=== PATIENT | male | born 1950 | race Caucasian/White ===

== ENCOUNTER 2018-10-22 01:36 | Inpatient (IN) | payer OTHER, SELFPAY ==
[2018-10-22] VITALS (37 sets, daily range): BP systolic 91–144; BP diastolic 53–113; PULSE 71–152; RESP 11–20; TEMP 36.2–36.8; O2SAT 93–97; BMI 33.0
--- NOTE | 2018-10-22 01:48 | ED.GENADULT ---
HPI - General Adult General Chief complaint: Arrhythmia/Palpitations Stated complaint: thinks he is in AFib Time Seen by Provider: 10/22/18 01:48 Source: patient Mode of arrival: ambulatory Limitations: no limitations History of Present Illness HPI narrative: Patient is a 67-year-old male here for evaluation of what he thinks is atrial fibrillation. Patient states that he has had a heart valve replaced in the past. He thinks that it is the mitral valve. He states that after that surgery he had several episodes of atrial fibrillation but then went appeared time without any problems. He states that his last episode of atrial fibrillation was approximately 1 year ago. He stated he was cardioverted at that time. States that last night he went to bed it is normal state health. Was woken up several hours prior to arrival here in the emergency department with a chest discomfort and also feel like his heart was racing. No shortness of breath. No lightheadedness. Not currently on anticoagulation. He states he has been taking his other medications. Related Data Home Medications Medication Instructions Recorded Confirmed amlodipine 5 mg PO DAILY 10/22/18 10/22/18 hydrocortisone 10 mg PO TID 10/22/18 10/22/18 leflunomide 20 mg PO DAILY 10/22/18 10/22/18 levothyroxine 50 mcg PO DAILY 10/22/18 10/22/18 metoprolol succinate 50 mg PO DAILY 10/22/18 10/22/18 ramipril 10 mg PO DAILY 10/22/18 10/22/18 Allergies Allergy/AdvReac Type Severity Reaction Status Date / Time pseudoephedrine AdvReac Palpitation Verified 10/22/18 02:15 [From [facility]] s Review of Systems Constitutional Denies fever(s) and Denies headache(s) ENT Ears, Nose, Mouth, and Throat: Denies vertigo, Denies dizziness and Denies headache(s) Cardiovascular Reports chest pain, Reports rapid heart rate, Denies lightheadedness, Reports palpitations and Denies dyspnea Respiratory Denies dyspnea Gastrointestinal Gastrointestinal: Denies abdominal pain, Denies nausea and Denies vomiting Musculoskeletal Denies myalgias and Denies arthralgias Integumentary/Breasts Denies rash Neurologic Denies behavioral changes, Denies vertigo, Denies dizziness and Denies headache(s) Psychiatric Denies behavioral changes Endocrine Reports palpitations Hematologic/Lymphatic Denies easy bleeding and Denies easy bruising Allergic/Immunologic Denies urticaria [facility] Medical History Acromegalia (Acute) Addisons disease (Acute) History of fractured pelvis (Acute) History of prostate cancer (Acute) Hypertension (Acute) Melanoma (Acute) Obstructive sleep apnea on CPAP (Acute) Pituitary adenoma (Acute) Surgical History H/O mitral valve replacement (Acute) History of bilateral inguinal hernia repair (Acute) History of pituitary surgery (Acute) History of shoulder surgery (Acute) History of transurethral resection of prostate (Acute) History of umbilical hernia repair (Acute) Social History household members: spouse and family Smoking Status: Former smoker Social History household members: spouse and family Smoking Status: Former smoker Exam Initial Vital Signs Initial Vital Signs: Vital Signs Pulse Rate 151 H 10/22/18 01:38 Respiratory Rate 16 10/22/18 01:38 Blood Pressure 131/113 H 10/22/18 01:38 Pulse Oximetry 95 10/22/18 01:38 Const General: cooperative, comfortable, well developed, well groomed and No acute distress Orientation: alert, awake and oriented x3 HENMT Head: normal to inspection and normocephalic Resp Effort & Inspection: normal respiratory effort Auscultation: clear to auscultation bilaterally Cardio Rate: tachycardic Rhythm: abnormal rhythm irregularly irregular Pulses: radial pulses present GI Inspection: non-distended Palpation: soft, No firm and No tender Skin Lesions: no lesions Rashes: no rashes Neuro General: alert and awake Cognition: normal cognition Speech: speech normal Gait: normal gait Motor: muscle tone normal throughout Extrem General: normal to inspection and capillary refill normal Psych Appearance: grossly normal and well kempt Procedures Cardioversion Consent Signed: Yes Indication: Atrial fibrillation Cardiac rhythm prior to cardioversion: Atrial fibrillation Stability: Stable Number of attempts (shocks): 2 Joules used: 150 and 200 Cardiac rhythm post-cardioversion: Atrial fibrillation Additional Comments: On successful cardioversion Procedural Sedation Patient Age: Patient is 5yrs or older Consent signed: Yes Time out performed: Yes Indication: cardioversion Presedation Evaluation: CRYSTAL singleton ASA Class: II Mallampati Airway Classification: Class II Preparation: cardiac technologist applied, pulse oximeter, capnometry used and supplemental O2 applied Fentanyl: IV Fentanyl dose (mcg): 10 Midazolam: IV Midazolam dose (mg): 3 ED Sedation Level: Moderate (Concious) Patient Tolerated Procedure: Well and No complications Complications: none Course Orders Ordered: ED Orders 10/22/18 EKG-12 Lead Stat 10/22/18 01:50 EKG-12 Lead Stat 10/22/18 01:51 Basic Metabolic Panel Stat Complete Blood Count AUTO DIFF Stat Free T4 Free Thyroxine Routine Magnesium Stat Partial Thromboplastin Time Stat Prothrombin Time INR Stat Thyroid Stimulating Hormone Urgent Troponin I Stat 10/22/18 03:19 XR chest 1V Stat 10/22/18 03:53 EC echo doppler complete Urgent 10/22/18 03:58 Consult to Dietitian, Adult Routine 10/22/18 03:59 Consult to Discharge Planning Routine Consult to Respiratory Therapy Evaluate & Treat 10/22/18 04:00 MRSA PCR Stat 10/22/18 04:36 BiPAP Ventilatory Support RT PROTOCOL 10/22/18 04:37 Consult to Respiratory Therapy Evaluate & Treat Acetaminophen (Tylenol) 650 mg PO Q6HR PRN PRN Reason: As Needed for Fever/Mild Pain Enoxaparin Sodium (Lovenox) 120 mg SUBCUT BID IVY Hydrocortisone (Cortef) 10 mg PO TID IVY Diltiazem HCl 125 mg/ Dextrose 125 mls @ 5 mls/hr IV TITRATE IVY; Protocol Sodium Chloride (Normal Saline 0.9%) 1,000 mls @ 100 mls/hr IV CONT IVY Leflunomide (Arava) 20 mg PO DAILY IVY Levothyroxine Sodium (Synthroid) 50 mcg PO DAILY@0700 IVY Metoprolol Succinate (Toprol Xl) 50 mg PO DAILY IVY Morphine Sulfate (Morphine) 2 mg IV Q4HR PRN PRN Reason: Pain, Moderate (4-6) Naloxone HCl (Narcan) 0.2 mg IV Q2MIN PRN PRN Reason: Opiate Reversal Discontinued Medications Diltiazem HCl (Cardizem) 10 mg IV NOW ONE Stop: 10/22/18 02:34 Last Admin: 10/22/18 03:44 Dose: Not Given Enoxaparin Sodium (Lovenox) 115 mg 1 mg/kg (115 mg) SUBCUT BID [facility] Fentanyl (Sublimaze) 100 mcg IV NOW ONE Stop: 10/22/18 02:33 Last Admin: 10/22/18 02:24 Dose: 100 mcg Sodium Chloride (Normal Saline 0.9%) 1,000 mls @ 1,000 mls/hr IV BOLUS ONE Stop: 10/22/18 02:48 Last Infusion: 10/22/18 03:59 Dose: 0 mls/hr Admin: 10/22/18 02:27 Dose: 1,000 mls/hr DILTIAZEM (Diltiazem 125 Mg/125 Ml-D5w) 125 mg in 125 mls @ 5 mls/hr IV TITRATE IVY; Protocol Last Titration: 10/22/18 03:59 Dose: 10 mg/hr, 10 mls/hr Titration: 10/22/18 03:29 Dose: 10 mg/hr, 10 mls/hr Admin: 10/22/18 03:11 Dose: 5 mg/hr, 5 mls/hr Sodium Chloride (Normal Saline 0.9%) 500 mls @ 1,000 mls/hr IV BOLUS ONE Stop: 10/22/18 03:59 Last Infusion: 10/22/18 04:01 Dose: 1,000 mls/hr Admin: 10/22/18 03:31 Dose: 1,000 mls/hr Midazolam HCl (Versed) 3 mg IV NOW ONE Stop: 10/22/18 02:33 Last Admin: 10/22/18 02:22 Dose: 3 mg Vital Signs - 8 hr 10/22/18 01:38 10/22/18 02:06 10/22/18 02:10 Temperature Pulse Rate 151 H 141 H 141 H Respiratory Rate 16 19 20 Blood Pressure 131/113 H Blood Pressure [Left Arm] 136/92 H 118/88 Pulse Oximetry 95 95 95 10/22/18 02:15 10/22/18 02:20 10/22/18 02:25 Temperature Pulse Rate 146 H 146 H 139 H Respiratory Rate 18 14 11 L Blood Pressure Blood Pressure [Left Arm] 124/89 123/103 H 100/78 Pulse Oximetry 96 97 95 10/22/18 02:30 10/22/18 02:35 10/22/18 02:40 Temperature Pulse Rate 141 H 142 H 145 H Respiratory Rate 13 12 17 Blood Pressure Blood Pressure [Left Arm] 100/74 119/84 116/77 Pulse Oximetry 96 96 97 10/22/18 02:45 10/22/18 02:50 10/22/18 02:55 Temperature Pulse Rate 141 H 142 H 143 H Respiratory Rate 17 16 14 Blood Pressure Blood Pressure [Left Arm] 118/70 109/80 99/76 Pulse Oximetry 96 96 96 10/22/18 03:00 10/22/18 03:05 10/22/18 03:10 Temperature Pulse Rate 142 H 144 H 143 H Respiratory Rate 12 13 14 Blood Pressure Blood Pressure [Left Arm] 112/87 98/75 104/91 H Pulse Oximetry 96 96 95 10/22/18 03:15 10/22/18 03:20 10/22/18 03:30 Temperature Pulse Rate 152 H 132 H 149 H Respiratory Rate 14 12 15 Blood Pressure Blood Pressure [Left Arm] 96/79 91/76 111/80 Pulse Oximetry 95 94 95 10/22/18 03:35 10/22/18 03:40 10/22/18 04:29 Temperature 98.2 F Pulse Rate 126 H 136 H 130 H Respiratory Rate 20 13 12 Blood Pressure 130/53 L Blood Pressure [Left Arm] 103/72 116/67 Pulse Oximetry 96 96 93 Medical Decision Making Lab Data Lab results reviewed: Yes I reviewed the patient's lab results. Result diagrams: 10/22/18 01:51 10/22/18 01:51 Lab Results 10/22/18 10/22/18 10/22/18 Range/Units 01:51 01:51 01:51 WBC 5.6 (4.5-11.0) X10^3/uL RBC 4.99 (4.5-5.9) X10^6/uL Hgb 16.2 (13.5-17.5) g/dL Hct 47.7 (41-53) % MCV 95.6 (80-100) fL MCH 32.4 (26-34) PG MCHC 33.9 (30-36) % RDW 14.3 (11.6-14.8) % Plt Count 215 (150-400) X10^3/uL Neut % (Auto) 61.2 (50-75) % Lymph % (Auto) 29.2 (25-40) % [place] % (Auto) 6.0 (3-14) % Eos % (Auto) 2.6 (2-4) % Baso % (Auto) 1.0 (0-2) % Neut # (Auto) 3500 (3843-4738) /uL Lymph # (Auto) 1700 (4123-0513) /uL [place] # (Auto) 300 (0-900) /uL Eos # (Auto) 100 (0-450) /uL Baso # (Auto) 100 (0-100) /uL PT 11.1 (10.1-12.7) SECONDS INR 1.0 (0.9-1.3) APTT 29 (26.4-36.2) SECONDS Sodium 140 (137-145) mmol/L Potassium 3.9 (3.4-5.1) mmol/L Chloride 103 (98-107) mmol/L Carbon Dioxide 28 (22-32) mmol/L BUN 17 (9-20) mg/dL Creatinine 0.70 (0.66-1.25) mg/dL Estimated GFR > 60.0 (>60) mL/min BUN/Creatinine Ratio 24.3 H (6-22) Glucose 140 H (80-110) mg/dL Calcium 9.6 (8.4-10.2) mg/dL Magnesium (1.6-2.3) mg/dL Troponin I 0.017 (0.01-0.034) ng/mL TSH (0.47-4.68) uIU/mL 10/22/18 10/22/18 Range/Units 01:51 01:51 WBC (4.5-11.0) X10^3/uL RBC (4.5-5.9) X10^6/uL Hgb (13.5-17.5) g/dL Hct (41-53) % MCV (80-100) fL MCH (26-34) PG MCHC (30-36) % RDW (11.6-14.8) % Plt Count (150-400) X10^3/uL Neut % (Auto) (50-75) % Lymph % (Auto) (25-40) % [place] % (Auto) (3-14) % Eos % (Auto) (2-4) % Baso % (Auto) (0-2) % Neut # (Auto) (7162-2925) /uL Lymph # (Auto) (0030-9037) /uL [place] # (Auto) (0-900) /uL Eos # (Auto) (0-450) /uL Baso # (Auto) (0-100) /uL PT (10.1-12.7) SECONDS INR (0.9-1.3) APTT (26.4-36.2) SECONDS Sodium (137-145) mmol/L Potassium (3.4-5.1) mmol/L Chloride (98-107) mmol/L Carbon Dioxide (22-32) mmol/L BUN (9-20) mg/dL Creatinine (0.66-1.25) mg/dL Estimated GFR (>60) mL/min BUN/Creatinine Ratio (6-22) Glucose (80-110) mg/dL Calcium (8.4-10.2) mg/dL Magnesium 2.1 (1.6-2.3) mg/dL Troponin I (0.01-0.034) ng/mL TSH 0.99 (0.47-4.68) uIU/mL ECG Data Attestation: I personally reviewed and interpreted this ECG as follows: Prior ECG tracings: not available for review Interpretation: EKG upon arrival Atrial fibrillation Ventricular rate of 149 Normal axis Normal QRS Normal QTC ST depressions lateral EKG after cardioversion attempt Atrial fibrillation Ventricular rate of 144 Unchanged from prior EKG MDM Narrative Medical decision making narrative: Patient with symptoms less than 48 hours. Discussed with him his options to include rate control versus rhythm control with cardioversion. Patient opted for rhythm control. After to unsuccessful Tums of cardioversion he was started on a Cardizem drip. He tolerated the sedation well. The chest x-ray was ordered per request of the admitting provider. He will follow up on the results. Will admit the patient for further evaluation and treatment. Critical Care Time Critical Care Time: Yes Total Critical Care Time: 30 Attestation: The high probability of a clinically significant, sudden or life threatening deterioration of the cardiovascular system(s) required my full and direct attention, intervention and personal management. The aggregate critical care time was 30 minutes. This time is in addition to time spent performing reported procedures but includes the following: [] Data Review and interpretation [] Patient assessment and monitoring of vital signs [] Documentation [] Medication orders and management Discharge Plan Departure Patient Disposition: Admitted As Inpatient Clinical Impression: Atrial fibrillation Qualifiers: Atrial fibrillation type: paroxysmal Qualified Code(s): I48.0 - Paroxysmal atrial fibrillation Discharge Date/Time: 10/22/18 03:55 Interventions: ED Discharge Assessment Last Done: 10/22/18 03:50 Admit Date/Time: 10/22/18 03:33 Admit Provider: Anant Smith
[2018-10-22 02:04] LABS: Add Manual Diff / Slide Review NO; Basophils Absolute Auto 100 /uL (0-100); Eosinophils Absolute Auto 100 /uL (0-450); Eosinophils Percent Auto 2.6 % (2-4); Hematocrit 47.7 % (41-53); Hemoglobin 16.2 g/dL (13.5-17.5); Lymphocytes Absolute Auto 1700 /uL (1100-4500); Lymphocytes Percent Auto 29.2 % (25-40); Mean Corpuscular HGB Conc 33.9 % (30-36); Mean Corpuscular Hemoglobin 32.4 PG (26-34); Mean Corpuscular Volume 95.6 fL (80-100); Monocytes Absolute Auto 300 /uL (0-900); Neutrophils Absolute Auto 3500 /uL (1500-7000); Neutrophils Percent Auto 61.2 % (50-75); Platelet Count 215 X10^3/uL (150-400); Red Blood Cell Count 4.99 X10^6/uL (4.5-5.9); Red Cell Distribution Width 14.3 % (11.6-14.8); White Blood Cell Count 5.6 X10^3/uL (4.5-11.0)
[2018-10-22 02:05] LABS: Prothrombin Time 11.1 SECONDS (10.1-12.7)
[2018-10-22 02:08] LABS: PTT Partial Thromboplastin Tim 29 SECONDS (26.4-36.2)
[2018-10-22 02:09] LABS: BUN Creatinine Ratio 24.3 (6-22); Blood Urea Nitrogen 17 mg/dL (9-20); Calcium 9.6 mg/dL (8.4-10.2); Carbon Dioxide 28 mmol/L (22-32); Chloride 103 mmol/L (98-107); Estimated Glomerular Filt Rate > 60.0 mL/min (>60); Glucose 140 mg/dL (80-110); HEMOLYSIS 42 (0-50); Potassium 3.9 mmol/L (3.4-5.1); Sodium 140 mmol/L (137-145)
[2018-10-22 02:20] LABS: Troponin I 0.017 ng/mL (0.01-0.034)
[2018-10-22] MEDS: MIDAZOLAM 2 MG/2 ML VIAL 3 MG IV (02:22)
[2018-10-22] MEDS: fentaNYL 100 MCG/2 ML INJ IV (02:24)
[2018-10-22] MEDS: SODIUM CHLORIDE 0.9% 1,000 ML 1000 ML IV (02:27)
[2018-10-22] MEDS: DILTIAZEM 125 MG/125 ML PIGGYBACK IV (03:11)
--- NOTE | 2018-10-22 03:19 | DI.RAD.S_ITS ---
PROCEDURE: XR CHEST 1V INDICATIONS: a fib TECHNIQUE: One view of the chest was acquired. COMPARISON: None. FINDINGS: Surgical changes and devices: There is a left lower arthroplasty. The distal left clavicle has been resected. Sternotomy wires and an aortic valve replacement can be seen. Lungs and pleura: Minimal interstitial prominence is seen. No focal infiltrates are seen. No pleural effusions or pneumothorax. Mediastinum: The cardiac contours are within normal limits. The aorta demonstrates calcification and tortuosity. Bones and chest wall: Age-appropriate bony degenerative changes are seen. No suspicious bony lesions. Overlying soft tissues appear unremarkable. IMPRESSION: Interstitial prominence is seen throughout. The interstitial prominence is nonspecific, yet may be related to pulmonary edema. Tortuous aorta. Postoperative and degenerative changes are seen. Dictated by: Marty Lowry M.D. on 10/22/2018 at 7:34 Approved by: Marty Lowry M.D. on 10/22/2018 at 7:35
[2018-10-22] MEDS: SODIUM CHLORIDE 0.9% 500 ML 1000 ML IV (03:31)
--- NOTE | 2018-10-22 03:32 | PC.NURSE ---
hospitalist at bedside
--- NOTE | 2018-10-22 03:53 | DI.ECHO.S_ITS ---
[facility] [place] +---------+ Hospital +---------+ : : [address] : : : : [id number] : : : : Phone: [phone] Echocardiogram Report + + :Name: DIYA CROWE Study Date: 10/22/2018 Height: 73 in : :[facility] Weight: 250 lb : : Gender: Male BSA: 2.4 m2 : :: 1950 Age: 67 yrs BP: 122/87 mmHg: :Reason For Study: A FIB RVR : :Ordering Physician: Angelina : :Hospitalist Performed By: Jennifer Modoy : :Referring: SANTIAGO GARCIA : + + Interpretation Summary The left ventricle is grossly normal size. The left ventricular ejection fraction is normal. The ejection fraction is estimated to be 60-65%. There are no obvious focal wall motion abnormalities noted but poor endocardial definition reduces the sensitivity for the detection of such. Diastolic function could not be accurately assessed due to atrial fibrillation. The right ventricle grossly appears normal in size with probable normal systolic function. Pulmonary artery pressures cannot be estimated because of the lack of a measurable TR jet velocity. The left atrial size is normal. Right atrial size is normal. There is mild to moderate mitral annular calcification. There is trace mitral regurgitation. The mitral valve mean gradient is 4 mmHg. No significant mitral valve stenosis. There is mild aortic regurgitation. There is no other significant valvular heart disease. The IVC is dilated (diameter is greater than 2.1 cm) and it collapses less than 50% with a sniff. This suggests a high right atrial pressure of 15 mm Hg. Procedure: A two-dimensional transthoracic echocardiogram with color flow and Doppler was performed. The study quality was technically limited. There is no prior echocardiogram noted for this patient. The parasternal views were not obtained due to body habitus. The patient was in atrial fibrillation with rapid ventricular response during the exam with a heart rate exceeding 100 bpm. Left Ventricle: The left ventricle is grossly normal size. The left ventricle is not well visualized. The left ventricular ejection fraction is normal. The ejection fraction is estimated to be 60-65%. There are no obvious focal wall motion abnormalities noted but poor endocardial definition reduces the sensitivity for the detection of such. Diastolic function could not be accurately assessed due to atrial fibrillation. Right Ventricle: The right ventricle grossly appears normal in size with probable normal systolic function. Atria: The left atrial size is normal. Right atrial size is normal. There is no Doppler evidence for an interatrial shunt. Mitral Valve: The mitral valve leaflets appear mildly thickened, but open well. There is mild to moderate mitral annular calcification. An annuloplasty ring is noted in the mitral position. The mitral valve mean gradient is 4 mmHg. No significant mitral valve stenosis. There is trace mitral regurgitation. Aortic Valve: The aortic valve is not well visualized. The aortic valve is grossly normal. There is mild aortic regurgitation. Tricuspid Valve: The tricuspid valve is normal. There is a trace or physiologic amount of tricuspid regurgitation. Pulmonary artery pressures cannot be estimated because of the lack of a measurable TR jet velocity. Pulmonic Valve: The pulmonic valve is not well visualized. There is no other significant valvular heart disease. Great Vessels: The aortic root is not well visualized. The ascending aorta could not be visualized. The aortic arch could not be visualized. The pulmonary is not well visualized. The IVC is dilated (diameter is greater than 2.1 cm) and it collapses less than 50% with a sniff. This suggests a high right atrial pressure of 15 mm Hg. Pericardium/ Pleura There is no pericardial effusion. There is no pleural effusion. MMode/2D Measurements & Calculations LA A2 area: 22.9 cm2 RA long axis: 5.5 cm LA A4 area: 15.0 cm2 RA area: 17.3 cm2 LA length (vol): 4.5 cm RA vol: 46.3 ml LA vol: 64.7 ml RA : 19.6 ml/m2 LA vol index: 27.3 ml/m2 IVC diam: 2.2 cm RVD1 (basal): 3.5 cm RVD2 (mid): 2.8 cm TAPSE: 1.8 cm Doppler Measurements & Calculations Ao V2 max: 105.2 cm/sec LVOT Max Uche: 86.7 cm/sec Ao V2 mean: 73.5 cm/sec LV V1 max P.0 mmHg Ao max P.5 mmHg LV V1 VTI: 14.9 cm Ao mean P.4 mmHg sev ratio: 0.82 Ao V2 VTI: 18.0 cm MV E max uche: 112.6 cm/sec MV V2 mean: 92.0 cm/sec MV P1/2t: 63.7 msec MV mean P.9 mmHg MV V2 VTI: 23.5 cm MV P1/2t max uche: 109.7 cm/sec MVA(P1/2t): 3.5 cm2 Reading Physician:02:30 PM
--- NOTE | 2018-10-22 04:31 | P.HP_ITS ---
History of Present Illness Date Patient Seen: 10/22/18 Time Patient Seen: 03:42 Chief complaint: thinks he is in AFib Narrative: Mr. Arthur Baptiste is a 67-year-old male patient with a history si gnificant for mitral valve replacement, paroxysmal atrial fibrillation, hypertension, acromegaly, pituitary adenoma, Citrus's disease, hypothyroidism and prostate cancer status post TURP who presents to the emergency department after waking approximately midnight tonight with chest pressure that is substernal and nonradiating. He has had previous episodes of atrial fibrillation and reports that the symptoms he has tonight are consistent with his prior occurrences. His last episode of atrial fibrillation was approximately 1 year ago and was successfully cardioverted out of the arrhythmia. Patient is medicated with metoprolol and reports that he has not missed a dose. When he went to bed he felt fine and had no recent complaints of cold or illness, fevers or chills, nasal congestion or sore throat. He does feel rapid heartbeat and the time of encounter his chest pain is relieved on C ardizem though his heart rate remains in the 130s. He denies any complaints of nausea vomiting, abdominal pain or heartburn, diarrhea or constipation. He does have difficulty urinating related to prostate cancer. He has undergone TURP and subsequent radiation treatment. Upon arrival in the ER the patient has a heart rate of 151 with a blood pressure 131/113 with respirations of 16 saturating 95% on room air. Temperature is obtained upon arrival to the ICU is found to be afebrile at 98.2. Laboratory studies are obtained including a CBC which finds white count of 5.6 hemoglobin 16.2 and hematocrit of 47.7 and platelets of 215. On chemistries is potassium is 3.9 and magnesium is ordered. He does have a BUN of 17 and creatinine is 0.7. His nonfasting glucose is 140. On coagulation he has a PT of 11.1 and INR 1.0 with a PTT of 29. His troponin is negative at 0.0127. While in the ER the patient was sedated and underwent 2 attempts at cardioversion 1st at 120 joules and then 200 joules without success. The patient was subsequently started on a diltiazem drip a bolus was not given due to low blood pressure. A 500 mL bolus of normal saline was initiated. A chest x-ray was requested. The patient is admitted to the ICU for atrial fibrillation with rapid ventricular response ref ractory to attempts at cardioversion. Patient History Medical History Acromegalia (Acute) Addisons disease (Acute) History of fractured pelvis (Acute) History of prostate cancer (Acute) Hypertension (Acute) Melanoma (Acute) Obstructive sleep apnea on CPAP (Acute) Pituitary adenoma (Acute) Surgical History H/O mitral valve replacement (Acute) History of bilateral inguinal hernia repair (Acute) History of pituitary surgery (Acute) History of shoulder surgery (Acute) History of transurethral resection of prostate (Acute) History of umbilical hernia repair (Acute) Social History household members: spouse and family Smoking Status: Former smoker Family & Social History Safety & Behavioral: Feels Safe in Current Yes Environment Been Physically Hurt or No Threatened By a Person Tobacco & Substance use: Smoking Status Former smoker alcohol intake frequency 0-2 drinks per day Substance Use Type marijuana Comment: The patient lives in a single family home in [facility] or again with his to whom he has been for 40 years. Both the patient's father and mother had heart attacks but no other history of diabetes hypertension or cancer per patient. Smoking: The patient smoked for 3 years, a couple of cigarettes per day, when he was in college. Alcohol: The patient endorses variable alcohol consumption varying 1-2 beers per day some weeks and other weeks none. Substance use: The patient endorses use THC, gummies used for sleep and CBD gummies. Advanced directives: The patient has no advanced directive however in direct discussion with the patient he states his wish to be FULL CODE. He designates his , Aliyah, to be his surrogate decision maker. Meds Home Medications Medication Instructions Recorded Confirmed Type amlodipine 5 mg PO DAILY 10/22/18 10/22/18 History hydrocortisone 10 mg PO TID 10/22/18 10/22/18 History leflunomide 20 mg PO DAILY 10/22/18 10/22/18 History levothyroxine 50 mcg PO DAILY 10/22/18 10/22/18 History metoprolol succinate 50 mg PO DAILY 10/22/18 10/22/18 History ramipril 10 mg PO DAILY 10/22/18 10/22/18 History Allergies Allergy/AdvReac Type Severity Reaction Status Date / Time pseudoephedrine AdvReac Palpitation Verified 10/22/18 02:15 [From Kavyaafevanita] s Review of Systems Review of Systems All systems reviewed & are unremarkable except as noted in HPI and below Exam Vital Signs (past 8 hours): - 10/22/18 01:38 10/22/18 02:06 10/22/18 02:10 Pulse Rate 151 H 141 H 141 H Respiratory Rate 16 19 20 Blood Pressure 131/113 H Blood Pressure [Left Arm] 136/92 H 118/88 Pulse Oximetry 95 95 95 10/22/18 02:15 10/22/18 02:20 10/22/18 02:25 Pulse Rate 146 H 146 H 139 H Respiratory Rate 18 14 11 L Blood Pressure Blood Pressure [Left Arm] 124/89 123/103 H 100/78 Pulse Oximetry 96 97 95 10/22/18 02:30 10/22/18 02:35 10/22/18 02:40 Pulse Rate 141 H 142 H 145 H Respiratory Rate 13 12 17 Blood Pressure Blood Pressure [Left Arm] 100/74 119/84 116/77 Pulse Oximetry 96 96 97 10/22/18 03:15 10/22/18 03:20 10/22/18 03:30 Pulse Rate 152 H 132 H 149 H Respiratory Rate 14 12 15 Blood Pressure Blood Pressure [Left Arm] 96/79 91/76 111/80 Pulse Oximetry 95 94 95 10/22/18 03:35 10/22/18 03:40 Pulse Rate 126 H 136 H Respiratory Rate 20 13 Blood Pressure Blood Pressure [Left Arm] 103/72 116/67 Pulse Oximetry 96 96 Oxygen Delivery Method Nasal Cannula Oxygen Flow Rate 3 Objective Labs Result Diagrams: 10/22/18 01:51 10/22/18 01:51 Labs: Laboratory Results - last 24 hr 10/22/18 10/22/18 10/22/18 01:51 01:51 01:51 WBC 5.6 RBC 4.99 Hgb 16.2 Hct 47.7 MCV 95.6 MCH 32.4 MCHC 33.9 RDW 14.3 Plt Count 215 Neut % (Auto) 61.2 Lymph % (Auto) 29.2 [place] % (Auto) 6.0 Eos % (Auto) 2.6 Baso % (Auto) 1.0 Neut # (Auto) 3500 Lymph # (Auto) 1700 [place] # (Auto) 300 Eos # (Auto) 100 Baso # (Auto) 100 PT 11.1 INR 1.0 APTT 29 Sodium 140 Potassium 3.9 Chloride 103 Carbon Dioxide 28 BUN 17 Creatinine 0.70 Estimated GFR > 60.0 BUN/Creatinine Ratio 24.3 H Glucose 140 H Calcium 9.6 Troponin I 0.017 Assessment & Plan Assessment & Plan narrative: The patient is admitted to the hospital following failed attempted cardioversion x2. The patient remains in atrial fibrillation with RVR with a ventricular rate yvette triple between 130 to 140s. The patient is admitted to the ICU for infusion titration and close monitoring. 1. Atrial fibrillation with rapid ventricular response, present on admission. -the patient reports that he woke this morning approximately midnight with chest pressure described as substernal and nonradiating. -the patient has had atrial fibrillation since his mitral valve replacement many years ago, last occurrence 1 year ago successfully cardioverted. -potassium 3.9, magnesium is found to be 2.1, troponin is normal at 0.017 and will not be repeated status post cardioversion. Patient is free of chest pain. -diltiazem infusion initiated 5 mg without an initial bolus due to lower blood pressure. Will titrate to heart rate and blood pressure. -the patient's home medication of metoprolol succinate 50 mg daily will be increased as blood pressure allows -Lovenox 1 milligram/kilogram twice daily, chads Vasc 2 score is to and has bled score is 2. Will evaluate the options for long-term anticoagulation. 2. Chronic Hypertension, present on admission. -patient's blood pressure 131/113 upon arrival in the ER markedly reduced following sedation and diltiazem infusion. -patient is typically on amlodipine 5 mg and ramipril 10 mg daily which are both on hold pending normalization of pressures. -will preferentially increase metoprolol to achieve rate and rhythm control. -will reassess pressures as heart rhythm stabilizes. 3. Acquired Hypothyroidism, presumed stable. -continue thyroid supplementation of 50 mcg daily. -obtain TSH and T4. 4. Obstructive sleep apnea on CPAP, stable. -patient reports having CPAP therapy for 30 years and indicates he has a difficult time sleeping without it. -respiratory therapy to consult and evaluate, CPAP per protocol and patient may use own machine. 5. Ramos's disease, stable. -Will continue hydrocortisone 10 mg 3 times daily. 6. Acromegaly, stable. -patient with history of multiple procedures for pituitary adenoma. -the patient reports that he has a dilated aorta that is under surveillance but no other prominent complications. -patient receiving regular depo injections of lanreotide. 7. Chronic prostatism, stable. -patient with history of prostate cancer status post TURP and radiation therapy. -he describes some difficulty with hesitancy but is able to empty his bladder completely. -he is not currently on any alpha eloisa medication. The patient is admitted to ICU for continuous monitoring and close observation related to risks for complications and adverse events. The patient is admitted as an inpatient with expected length of stay to be greater than 2 midnights. Critical care time: Time spent in direct [id number] assessment, evaluation and re-evaluation is 40 minutes. Time Spent With Patient Time with patient: Greater than 35 minutes Scores GCS Kalia coma scale eye opening: Spontaneous Kalia coma scale verbal response: Orientated Ramer coma scale motor response: Obey commands Kalia coma scale total score: 15 CHADS-VASc Congestive heart failure: no Hypertension: yes Age 75 years or older: no Diabetes mellitus: no Stroke, TIA, or TE: no Vascular disease: no Age 65 to 74 years: yes Sex category (female): Male CHADS-VASc Score: 2
[2018-10-22 04:42] LABS: Magnesium 2.1 mg/dL (1.6-2.3)
[2018-10-22 05:13] LABS: Thyroid Stimulating Hormone 0.99 uIU/mL (0.47-4.68)
[2018-10-22] MEDS: SODIUM CHLORIDE 0.9% 1,000 ML 100 ML IV ×3 (05:37→22:14)
[2018-10-22] MEDS: dilTIAZem 125 MG in DEXTROSE 5 % IN WATER 100 ML IV (05:39)
[2018-10-22 05:40] LABS: Free T4, Direct Thyroxine 0.95 ng/dL (0.78-2.19)
[2018-10-22] MEDS: ENOXAPARIN 60 MG/0.6 ML SYRINGE 120 MG SUBCUT ×2 (05:40→20:14)
--- NOTE | 2018-10-22 06:41 | PC.NURSE ---
Dairy Science Teacher Note: 0355: Pt admitted to ICU room 102 from ER via stretcher. He is alert, oriented X3. [address], in rt AC and rt hand. Cardizem drip continues at 10mg/hr, and NS bolus of 500cc, started in ER, is just finishing. 0415: Pt using urinal. 0500: Pt states he needs to have a bowel movement; agreed to use bedside commode. Had small soft BM. 0520: CXR done portably. 0630: HR down to a range of 84-96. Cardizem drip decreased from 10mg/hr to 7mg/hr. 0650: HR down to 76-84. Cardizem drip decreased to 5mg/hr.
--- NOTE | 2018-10-22 08:19 | PM.PN.1 ---
Subjective Date Patient Seen: 10/22/18 Time Patient Seen: 08:20 Interval history: He is seen in his room in the intensive care unit today to follow-up his atrial fibrillation with rapid ventricular response. The atrial fibrillation is related to structural heart disease with the mitral valve repair/replacement predisposing him to intermittent paroxysmal AFib. Both attempts at electrical cardioversion, using 1st 150 joules and then 200 joules were not successful. His heart rate was controlled with a diltiazem drip, currently at 5 mg an hour. In the past he has converted with electrical cardioversion and has not required chemical cardioversion. His other symptom of chest pressure is still present to a mild amount. His troponin on admission was 0.017 and has not been repeated due to the expected elevation caused by the attempts at cardioversion. He also tells me that his usual heart rate is 45-60. I called his hardboard coating machine operator in [facility] and talked to the teaching fellow Dr. Mcqueen who recommended anticoagulation and then chemical cardioversion attempt with follow up there after he gets home tomorrow. He is on vacation here staying with his daughter on a visit. An Echocardiogram is pending. Exam Vital Signs (past 8 hours): - 10/22/18 01:38 10/22/18 02:06 10/22/18 02:10 Temperature Pulse Rate 151 H 141 H 141 H Respiratory Rate 16 19 20 Blood Pressure 131/113 H Blood Pressure [Left Arm] 136/92 H 118/88 Pulse Oximetry 95 95 95 10/22/18 02:15 10/22/18 02:20 10/22/18 02:25 Temperature Pulse Rate 146 H 146 H 139 H Respiratory Rate 18 14 11 L Blood Pressure Blood Pressure [Left Arm] 124/89 123/103 H 100/78 Pulse Oximetry 96 97 95 10/22/18 02:30 10/22/18 02:35 10/22/18 02:40 Temperature Pulse Rate 141 H 142 H 145 H Respiratory Rate 13 12 17 Blood Pressure Blood Pressure [Left Arm] 100/74 119/84 116/77 Pulse Oximetry 96 96 97 10/22/18 02:45 10/22/18 02:50 10/22/18 02:55 Temperature Pulse Rate 141 H 142 H 143 H Respiratory Rate 17 16 14 Blood Pressure Blood Pressure [Left Arm] 118/70 109/80 99/76 Pulse Oximetry 96 96 96 10/22/18 03:00 10/22/18 03:05 10/22/18 03:10 Temperature Pulse Rate 142 H 144 H 143 H Respiratory Rate 12 13 14 Blood Pressure Blood Pressure [Left Arm] 112/87 98/75 104/91 H Pulse Oximetry 96 96 95 10/22/18 03:15 10/22/18 03:20 10/22/18 03:30 Temperature Pulse Rate 152 H 132 H 149 H Respiratory Rate 14 12 15 Blood Pressure Blood Pressure [Left Arm] 96/79 91/76 111/80 Pulse Oximetry 95 94 95 10/22/18 03:35 10/22/18 03:40 10/22/18 04:29 Temperature 98.2 F Pulse Rate 126 H 136 H 130 H Respiratory Rate 20 13 12 Blood Pressure 130/53 L Blood Pressure [Left Arm] 103/72 116/67 Pulse Oximetry 96 96 93 10/22/18 04:45 10/22/18 05:00 10/22/18 05:15 Temperature Pulse Rate 113 H 120 H 108 H Respiratory Rate Blood Pressure 115/57 L 105/60 127/63 Blood Pressure [Left Arm] Pulse Oximetry 10/22/18 05:30 10/22/18 05:45 10/22/18 06:00 Temperature Pulse Rate 106 H 98 H 101 H Respiratory Rate Blood Pressure 101/63 109/72 107/58 L Blood Pressure [Left Arm] Pulse Oximetry 10/22/18 06:30 10/22/18 07:00 Temperature 97.2 F L Pulse Rate 90 90 Respiratory Rate 11 L Blood Pressure 109/58 L 109/62 Blood Pressure [Left Arm] Pulse Oximetry 94 Oxygen Delivery Method Nasal Cannula Oxygen Flow Rate 0 Narrative Exam Narrative: Alert and oriented, in no apparent distress. Heart is irregularly irregular without murmur. Lungs are clear to auscultation bilaterally Extremities have no ankle edema. Objective Labs Result Diagrams: 10/22/18 01:51 10/22/18 01:51 Labs: Laboratory Results - last 24 hr 10/22/18 10/22/18 10/22/18 01:51 01:51 01:51 WBC 5.6 RBC 4.99 Hgb 16.2 Hct 47.7 MCV 95.6 MCH 32.4 MCHC 33.9 RDW 14.3 Plt Count 215 Neut % (Auto) 61.2 Lymph % (Auto) 29.2 [place] % (Auto) 6.0 Eos % (Auto) 2.6 Baso % (Auto) 1.0 Neut # (Auto) 3500 Lymph # (Auto) 1700 [place] # (Auto) 300 Eos # (Auto) 100 Baso # (Auto) 100 PT 11.1 INR 1.0 APTT 29 Sodium 140 Potassium 3.9 Chloride 103 Carbon Dioxide 28 BUN 17 Creatinine 0.70 Estimated GFR > 60.0 BUN/Creatinine Ratio 24.3 H Glucose 140 H Calcium 9.6 Magnesium Troponin I 0.017 TSH Free T4 Nasal Screen MRSA (PCR) 10/22/18 10/22/18 10/22/18 01:51 01:51 01:51 WBC RBC Hgb Hct MCV MCH MCHC RDW Plt Count Neut % (Auto) Lymph % (Auto) [place] % (Auto) Eos % (Auto) Baso % (Auto) Neut # (Auto) Lymph # (Auto) [place] # (Auto) Eos # (Auto) Baso # (Auto) PT INR APTT Sodium Potassium Chloride Carbon Dioxide BUN Creatinine Estimated GFR BUN/Creatinine Ratio Glucose Calcium Magnesium 2.1 Troponin I TSH 0.99 Free T4 0.95 Nasal Screen MRSA (PCR) 10/22/18 04:00 WBC RBC Hgb Hct MCV MCH MCHC RDW Plt Count Neut % (Auto) Lymph % (Auto) [place] % (Auto) Eos % (Auto) Baso % (Auto) Neut # (Auto) Lymph # (Auto) [place] # (Auto) Eos # (Auto) Baso # (Auto) PT INR APTT Sodium Potassium Chloride Carbon Dioxide BUN Creatinine Estimated GFR BUN/Creatinine Ratio Glucose Calcium Magnesium Troponin I TSH Free T4 Nasal Screen MRSA (PCR) Negative for mrsa Assessment & Plan Assessment & Plan narrative: 1. Atrial fibrillation with rapid ventricular response, present on admission. He is predisposed to atrial fibrillation due to structural heart disease-mitral valve replacement -the patient reports that he woke this morning approximately midnight with chest pressure/sensation of tachycardia described as substernal and nonradiating. -the patient has had intermittent atrial fibrillation since his mitral valve replacement many years ago, last occurrence 1 year ago successfully cardioverted. -potassium 3.9, magnesium is found to be 2.1, troponin is normal at 0.017 and will not be repeated status post cardioversion. Patient is free of chest pain but admits to a mild ongoing substernal pressure sensation. -diltiazem infusion was effective. That will be stopped now that we are beginning him on an amiodarone loading and infusion dose. -the patient's home medication of metoprolol succinate 50 mg and amlodipine will be continued -Lovenox 1 milligram/kilogram twice daily, chads Vasc 2 score is to and has bled score is 2. Will evaluate the options for long-term anticoagulation. -discussed with his on-call hardboard coating machine operator who suggested anticoagulation, attempt chemical cardioversion, follow-up in [place] soon 2. Chronic Hypertension, present on admission. -patient's blood pressure 131/113 upon arrival in the ER markedly reduced following sedation and diltiazem infusion. -continue amlodipine, metoprolol. 3. Acquired Hypothyroidism, presumed stable. -continue thyroid supplementation of 50 mcg daily. -TSH is normal at 0.99 4. Obstructive sleep apnea on CPAP, stable. -patient reports having CPAP therapy for 30 years and indicates he has a difficult time sleeping without it. -respiratory therapy to consult and evaluate, CPAP per protocol and patient may use own machine. 5. Rimforest's disease, stable. -Will continue hydrocortisone 20 mg in the morning and 10 mg at 5:00 p.m.. 6. Acromegaly, stable. -patient with history of multiple procedures for pituitary adenoma. -the patient reports that he has a dilated aorta that is under surveillance but no other prominent complications. -patient receiving regular depo injections of lanreotide. 7. Chronic prostatism, stable. -patient with history of prostate cancer status post TURP and radiation therapy. -he describes some difficulty with hesitancy but is able to empty his bladder completely. -he is not currently on any alpha eloisa medication.
[2018-10-22] MEDS: LEVOTHYROXINE 50 MCG TABLET PO (08:57)
[2018-10-22] MEDS: LEFLUNOMIDE 20 MG TABLET PO (08:57)
[2018-10-22] MEDS: METOPROLOL ER 50 MG TABLET PO (08:57)
--- NOTE | 2018-10-22 09:09 | PC.NURSE ---
Addendum entered by Dayanara Yañez R.N. 10/22/18 10:27: Diltiazem drip stopped as ordered and Amiodarone infusion started per protocol. Original Note: Patient alert, oriented reports chest Pressure and soreness. Denies shortness of breath. Patient in afib rate 80-90's, diltiazem drip continues at 5mg/hr. Dr Stickle in to assess patient and aware of patients soreness and pressure to chest.
[2018-10-22] MEDS: HYDROCORTISONE 10 MG TABLET 20 MG PO (09:50)
[2018-10-22] MEDS: AMIODARONE 150 MG/100 ML PIGGYBACK 600 MG IV (09:50)
--- NOTE | 2018-10-22 10:13 | CM.DANOTE ---
DCP/Assessment: Reviewed chart. Patient is a 67yr old male admitted to I. with AFIB. PCP is Dr. Horacio Anthony in [place]. Primary payor is 1)[employer]. Met with patient and spouse/Fadra at bedside explained CM/SW role. Patient sitting in recliner at time of visit alert and oriented. Patient reports that they were visiting family in [place] when he though he was having AFIB. Patient with h/o AFIB. Patient reports that he is completely I in all ADL's. Patient plan to drive back to [place] when given the okay from medical standpoint. Patient has family in [place] that he can stay with if needed. No identified d/c planning needs at this time. P: Home when stable. CARROLL Song Discharge Planning/Care Management CM Discharge Assessment Start: 10/22/18 09:28 Freq: Status: Active Protocol: Document 10/22/18 10:08 KJS (Rec: 10/22/18 10:13 [id number]) Discharge Planning Assessment Assigned Blueprint Cutter CARROLL Song Contact Information Fadra (spouse) Advance Directives? No Advance Directives on File No History Provided By Patient Significant Other Has Patient been admitted in last 30 No days? Prior Living Arrangements House Household Members spouse family Type of transporation used prior to Drives own vehicle admit Independent with ADL's Yes Is patient alert and oriented? Yes Caregiver for Another No Barriers to Discharge No Discharge Plan Home Transportation Arrangement Family to provide transport when medically stable. Referrals Initiated None needed Whiteboard Updated in Patient Room with Yes name and ext. # of Blueprint Cutter Review Status In Process Next Review Type Continued Stay Review
[2018-10-22] MEDS: AMIODARONE 360 MG/200 ML PIGGYBACK 33.3 MG IV (10:24)
[2018-10-22] MEDS: AMLODIPINE 5 MG TABLET PO (15:11)
[2018-10-22] MEDS: HYDROCORTISONE 10 MG TABLET PO (16:31)
[2018-10-22] MEDS: AMIODARONE 541 MG/300.56 ML PIGGYBACK 16.7 MG IV (16:35)
[2018-10-22] MEDS: SODIUM CHLORIDE 0.9% FLUSH 10 ML IV (20:19)
[2018-10-22] MEDS: LORazepam 0.5 MG TABLET PO (22:27)
[2018-10-23] VITALS: BP 136/84; PULSE 48; RESP 20; TEMP 37.1; O2SAT 100
[2018-10-23 05:00] VITALS: BP 142/83; PULSE 49; RESP 18; TEMP 36; O2SAT 98
[2018-10-23 07:24] VITALS: BP 166/96; PULSE 54; RESP 16; TEMP 36.3; O2SAT 98
[2018-10-23] MEDS: HYDROCORTISONE 10 MG TABLET 20 MG PO (08:04)
[2018-10-23] MEDS: LEFLUNOMIDE 20 MG TABLET PO (08:04)
[2018-10-23] MEDS: LEVOTHYROXINE 50 MCG TABLET PO (08:05)
[2018-10-23 08:08] VITALS: PULSE 55
[2018-10-23] MEDS: METOPROLOL ER 50 MG TABLET PO (08:08)
[2018-10-23] MEDS: AMLODIPINE 5 MG TABLET PO (08:30)
[2018-10-23] MEDS: APIXABAN 5 MG TABLET PO (08:30)
--- NOTE | 2018-10-23 09:37 | PC.NURSE ---
Addendum entered by Kingston Swenson R.N. 10/23/18 10:36: Provided d/c packet, educational materials, and provided verbal education regarding medication regimen, doses, next dose due, side effects. Educated on Afib and when to seek emergency medical treatment. Instructed pt and to call engagement manager and schedule f/u appt. Rx sent to [facility]. Pt and will pick and shovel worker on their way out. Pt declined w/c and staff escort to POV. Pt left ambulating with steady gait in no acute distress. All belongings gathered and sent with pt/. Original Note: Plan is for pt to d/c home today with . Provided education regarding eliquis. Pt states he has had A fib in the past. He understands this disease process and has no questions at this time. Providing written educational materials for pt/fam review. Awaiting insurance auth for blood thinner and then d/c may be completed. Pt declined showering here- states he will do this at home after d/c. He has been OOB and ambulating around room with steady gait and no assistive device. Reviewed HR/rhythm with Dr. Holt. Dr. Holt instructs to give metoprolol PO as orders as long as HR is greater than 55. Pt denies dizziness/lightheadedness. Reviewed med regimen with Dr. Holt and TERENCE to d/c lovenox and order eliquis 5 mg PO BID.
--- NOTE | 2018-10-23 09:53 | P.DS_ITS ---
History of Present Illness Date Patient Seen: 10/22/18 Chief complaint: thinks he is in AFib Narrative: Written by Anant MANDUJANO: Mr. Arthur Baptiste is a 67-year-old male patient with a history significant for mitral valve replacement, paroxysmal atrial fibrillation, hypertension, acromegaly, pituitary adenoma, Bayville's disease, hypothyroidism and prostate cancer status post TURP who presents to the emergency department after waking approximately midnight tonight with chest pressure that is substernal and nonradiating. He has had previous episodes of atrial fibrillation and reports that the symptoms he has tonight are consistent with his prior occurrences. His last episode of atrial fibrillation was approximately 1 year ago and was successfully cardioverted out of the arrhythmia. Patient is medicated with metoprolol and reports that he has not missed a dose. When he went to bed he felt fine and had no recent complaints of cold or illness, fevers or chills, nasal congestion or sore throat. He does feel rapid heartbeat and the time of encounter his chest pain is relieved on Cardizem though his heart rate remains in the 130s. He denies any complaints of nausea vomiting, abdominal pain or heartburn, diarrhea or constipation. He does have difficulty urinating related to prostate cancer. He has undergone TURP and subsequent radiation treatment. Upon arrival in the ER the patient has a heart rate of 151 with a blood pressure 131/113 with respirations of 16 saturating 95% on room air. Temperature is obtained upon arrival to the ICU is found to be afebrile at 98.2. Laboratory studies are obtained including a CBC which finds white count of 5.6 hemoglobin 16.2 and hematocrit of 47.7 and platelets of 215. On chemistries is potassium is 3.9 and magnesium is ordered. He does have a BUN of 17 and creatinine is 0.7. His nonfasting glucose is 140. On coagulation he has a PT of 11.1 and INR 1.0 with a PTT of 29. His troponin is negative at 0.0127. While in the ER the patient was sedated and underwent 2 attempts at cardioversion 1st at 120 joules and then 200 joules without success. The patient was subsequently started on a diltiazem drip a bolus was not given due to low blood pressure. A 500 mL bolus of normal saline was initiated. A chest x-ray was requested. The patient is admitted to the ICU for atrial fibrillation with rapid ventricular response ref ractory to attempts at cardioversion. Discharge Providers Date of admission: 10/22/18 03:33 Discharge Date: 10/23/18 Consults: 10/22/18 03:58 Consult to Dietitian, Adult Routine Comment: Reason For Exam: Obese, BMI 33 10/22/18 03:59 Consult to Discharge Planning Routine Comment: Consult to Respiratory Therapy Evaluate & Treat Comment: Physician Instructions: Evaluate and treat 10/22/18 04:37 Consult to Respiratory Therapy Evaluate & Treat Comment: ROBBIN, CPAP may use home machine when brought in Physician Instructions: Evaluate and treat Discharge provider: Adilene Holt DO Summary Discharge Diagnosis: 1. Paroxysmal atrial fibrillation with rapid ventricular response, present on admission. Resolved. 2. Hypertension, chronic, present on admission. Stable. 3. Hypothyroidism, chronic, present on admission. Stable. 4. Obstructive sleep apnea on CPAP, present on admission. Stable. 5. Bayville's disease, chronic, present on admission. Stable. 6. Acromegaly, chronic, present on admission. Stable. 7. Prostatism, chronic, present on admission. Stable. Hospital Course: Arthur Baptiste is a 67-year-old male patient with a past medical history significant for mitral valve repair, paroxysmal atrial fibrillation, hypertension, acromegaly, pituitary adenoma, Bayville's disease, hypothyroidism and prostate cancer status post TURP who presented to the ED after awaking with substernal nonradiating chest pressure. 1. Paroxysmal atrial fibrillation with rapid ventricular response, present on admission. Resolved. -Patient presented with abrupt onset substernal nonradiating chest pressure that awoke him from sleep. -Patient is predisposed to atrial fibrillation due to structural heart disease- mitral valve repair. -Patient has had intermittent atrial fibrillation since his mitral valve repair many years ago. Last occurrence 1 year ago and he was successfully cardioverted. -Electrolytes within normal limits with potassium 3.9 and magnesium is found to be 2.1. -Attempted cardioversion x2 in the ED without success. -Troponin is normal at 0.017 and will not be repeated status post cardioversion. -Echocardiogram demonstrated normal RA, LA, RV and LV with preserved EF of 60- 65%, no obvious focal wall motion abnormalities, diastolic function could not be accurately assessed due to atrial fibrillation, mild to moderate mitral annular calcification, trace mitral regurgitation with mitral valve mean gradient 4 mmHg, no significant mitral valve stenosis, mild aortic regurgitation and high right atrial pressure of 15 mmHg. -Patient was started on diltiazem gtt then switched to amiodarone gtt and southn sulaimanously converted. 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 -Patient was on therapeutic Lovenox which was discontinued and he was started on Eliquis 5 mg twice daily. 2. Hypertension, chronic, present on admission. Stable. -Continued metoprolol succinate 50 mg daily and amlodipine 5 mg daily. 3. Hypothyroidism, chronic, present on admission. Stable. -TSH within normal limits at 0.99. -Continued levothyroxine of 50 mcg daily. 4. Obstructive sleep apnea on CPAP, present on admission. Stable. -Patient reports having CPAP therapy for 30 years and indicates he has a difficult time sleeping without it. -Respiratory therapy to consulted for CPAP protocol and patient used his own machine. 5. Ramos's disease, chronic, present on admission. Stable. -Continued hydrocortisone 20 mg in AM and 10 mg at 5:00 PM. 6. Acromegaly, chronic, present on admission. Stable. -Patient with history of multiple procedures for pituitary adenoma. The patient reports that he has a dilated aorta that is under surveillance but no other prominent complications. -Patient receiving regular depo injections of lanreotide. 7. Prostatism, chronic, present on admission. Stable. -Patient with history of prostate cancer status post TURP and radiation therapy. He describes some difficulty with hesitancy but is able to empty his bladder completely. -Currently he is not medically treated. Status at Discharge Functional status at discharge: independent ambulation Overall status at discharge: patient is back to baseline Exam Vital Signs (past 8 hours): - 10/23/18 05:00 10/23/18 07:24 10/23/18 08:08 Temperature 96.8 F L 97.4 F L Pulse Rate 49 L 54 L 55 L Respiratory Rate 18 16 Blood Pressure 142/83 H 166/96 H Pulse Oximetry 98 98 Oxygen Delivery Method Room Air Oxygen Flow Rate 0 Narrative Exam Narrative: General: Older gentleman sitting in bed and in no acute distress, well- developed, well-nourished, appropriately interactive. HEENT: Normocephalic, atraumatic. External ears without defect. Pupils equal, round, and reactive to light. Anicteric sclerae, moist conjunctivae, and no lid lag. Neck: Supple with full range of motion. No jugular venous distension. No lymphadenopathy or thyromegaly. Cardiovascular: Regular rhythm with mild bradycardia, without murmurs, rubs, or gallops appreciated. Pulmonary: Clear to auscultation bilaterally without crackles, wheezes, or rhonchi. Normal respiratory effort with no use of accessory muscles. Abdomen: Soft, bowel sounds present, nontender, nondistended. No hepatosplenom egaly or masses appreciated. Extremities: No clubbing, cyanosis, or edema. Skin: Normal temperature, turgor, and texture; no rash, ulcers, or subcutaneous nodules appreciated. Neurological: Cranial nerves grossly intact. Psychiatric: Normal mood and affect. Alert and oriented to person, place, and t [place]. Objective Labs Result Diagrams: 10/22/18 01:51 10/22/18 01:51 Discharge Plan Discharge Plan Patient Disposition: Home Discharge comment: You're being discharged home. 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 Duarte, as soon as possible. You have been prescribed Eliquis 5 mg twice a day to prevent blood clots. Continue taking metoprolol succinate 50 mg daily for your paroxysmal atrial fibrillation. Discharge Med Rec/Prescriptions Prescriptions: New Eliquis 5 mg Tablet 5 mg PO BID Qty: 60 RF: 0 Continued metoprolol succinate 50 mg tablet extended release 24 hr 50 mg PO DAILY RF: 0 amlodipine 5 mg tablet 5 mg PO DAILY RF: 0 leflunomide 20 mg tablet 20 mg PO DAILY RF: 0 levothyroxine 50 mcg tablet 50 mcg PO DAILY RF: 0 hydrocortisone 10 mg tablet 10 mg PO BID RF: 0 ramipril 10 mg capsule 10 mg PO DAILY RF: 0 lanreotide 120 mg PO DIRECTED RF: 0 Provider Discharge Instructions Diet: Low-fat, Low-sodium and Low-cholesterol Visit Report/Discharge Packet Instructions: DI for Atrial Fibrillation, Apixaban Discharge Data Attending Provider: Anant Smith Admit Date/Time: 10/22/18 03:33 Discharges patient from system. Discharge Date/Time: 10/23/18 10:35
== END 2018-10-23 10:35 | disposition home or self-care (01) | DRG 309 ==
LOC: ED 03:32 → ICU 03:55
PROVIDERS: Admitting Provider Nurse Practitioner Adult Health; Emergency Provider Emergency Medicine; Visit Provider Nurse Practitioner Adult Health
DX: I48.0 Paroxysmal atrial fibrillation (principal); E27.1 Primary adrenocortical insufficiency; Z95.2 Presence of prosthetic heart valve; I10 Essential (primary) hypertension; G47.33 Obstructive sleep apnea (adult) (pediatric); Z87.891 Personal history of nicotine dependence; E03.9 Hypothyroidism, unspecified; E22.0 Acromegaly and pituitary gigantism; N40.0 Benign prostatic hyperplasia without lower urinary tract symptoms
CPT/HCPCS: 36591; 71045; 80048; 83735; 84439; 84443; 84484; 85025; 85610; 85730; 87797; 92960; 93005; 93306; 96361; 96365; 99152; 99285; 99291; 99292; J0282; J1650; J2250; J3010

== ENCOUNTER 2018-11-04 19:31 | Emergency (ER) | payer OTHER, SELFPAY ==
[2018-10-22 03:55] VITALS: BMI 33.0
[2018-11-04] VITALS (7 sets, daily range): BP systolic 119–137; BP diastolic 79–89; PULSE 58–61; RESP 14–20; TEMP 36.5; O2SAT 94–98; BMI 32.3
--- NOTE | 2018-11-04 19:33 | DI.RAD.S_ITS ---
PROCEDURE: XR CHEST 1V INDICATIONS: chest pain TECHNIQUE: One view of the chest was acquired. COMPARISON: [facility], CR, XR CHEST 1V, 10/22/2018, 5:16. FINDINGS: Surgical changes and devices: Left shoulder arthroplasty and surgical wires consistent previous bypass as well as prosthetic heart valve are noted. Lungs and pleura: Minimal increased pulmonary vascularity is present. No pleural effusions or pneumothorax. Mediastinum: Aortic tortuosity is present. Heart size is normal. Bones and chest wall: No suspicious bony lesions. Overlying soft tissues appear unremarkable. IMPRESSION: Minimal increased vascularity. Dictated by: Khushboo Silveira M.D. on 11/04/2018 at 19:59 Approved by: Khusbhoo Silveria M.D. on 11/04/2018 at 20:01
[2018-11-04 19:49] LABS: Add Manual Diff / Slide Review NO; Basophils Absolute Auto 100 /uL (0-100); Basophils Percent Auto 1.9 % (0-2); Eosinophils Absolute Auto 100 /uL (0-450); Eosinophils Percent Auto 1.5 % (2-4); Hematocrit 47.9 % (41-53); Hemoglobin 16.2 g/dL (13.5-17.5); Lymphocytes Absolute Auto 2100 /uL (1100-4500); Lymphocytes Percent Auto 34.2 % (25-40); Mean Corpuscular HGB Conc 33.8 % (30-36); Mean Corpuscular Hemoglobin 32.4 PG (26-34); Mean Corpuscular Volume 95.7 fL (80-100); Monocytes Absolute Auto 400 /uL (0-900); Monocytes Percent Auto 7.2 % (3-14); Neutrophils Absolute Auto 3400 /uL (1500-7000); Neutrophils Percent Auto 55.2 % (50-75); Platelet Count 231 X10^3/uL (150-400); White Blood Cell Count 6.2 X10^3/uL (4.5-11.0)
[2018-11-04 19:55] LABS: INR 1.2 (0.9-1.3); Prothrombin Time 13.8 SECONDS (10.1-12.7)
--- NOTE | 2018-11-04 19:56 | ED.CHESTPAIN ---
HPI - Chest Pain General Chief Complaint: Chest Pain Stated Complaint: AFIB today Time Seen by Provider: 11/04/18 19:43 Source: patient Mode of arrival: ambulatory Limitations: no limitations History of Present Illness HPI narrative: The patient was taking a nap, he awoke about 1:00 a.m. with chest pain. He has paroxysmal atrial fib, he was in atrial fib at that time. He has sleep apnea. He was not wearing his CPAP machine. He thinks he developed apnea, initiating the AFib event. The AFib last about 3 hours. He has low sternal chest pain, the pain was there when he awoke. The pain does not radiate. He has no associated dyspnea or diaphoresis. He has ongoing pain at the same site, but improved. Additionally, he has a hiatal hernia. He is not having abdominal complaints at this time. He has no recent illness. He has the AFib history, but no history of CAD/GA. He lives in [place], he visits family locally. He had mitral valve surgery several years ago, experiencing AFib after the surgery. He has not had significant AFib since then. He was seen here earlier in the month with an AFib event. Is anticoagulated with Eliquis. He is followed by a network technical analyst in [place]. He has not been ill recently. He thinks the pain which is very focal at the lower sternum is musculoskeletal pain. He did not come in earlier, he comes in now at the insistence of family. Related Data Home Medications Medication Instructions Recorded Confirmed amlodipine 5 mg PO DAILY 10/22/18 10/22/18 hydrocortisone 10 mg PO BID 10/22/18 10/22/18 lanreotide 120 mg PO DIRECTED 10/22/18 10/22/18 leflunomide 20 mg PO DAILY 10/22/18 10/22/18 levothyroxine 50 mcg PO DAILY 10/22/18 10/22/18 metoprolol succinate 50 mg PO DAILY 10/22/18 10/22/18 ramipril 10 mg PO DAILY 10/22/18 10/22/18 Previous Rx's Medication Instructions Recorded apixaban [Eliquis] 5 mg PO BID #60 tab 10/23/18 Allergies Allergy/AdvReac Type Severity Reaction Status Date / Time pseudoephedrine AdvReac Palpitation Verified 10/22/18 02:15 [From [facility]] s Review of Systems Review of Systems ROS Unobtainable: All systems reviewed & are unremarkable except as noted in HPI and below Constitutional Denies chills, Denies fever(s), Denies headache(s), Denies lethargy and Denies weakness ENT Ears, Nose, Mouth, and Throat: Denies vertigo, Denies dizziness, Denies headache(s), Denies neck pain and Denies sore throat Cardiovascular Reports as per HPI, Reports chest pain, Denies syncope, Reports irregular heart rhythm, Denies lightheadedness, Denies palpitations, Denies dyspnea, Denies dyspnea on exertion and Denies orthopnea Respiratory Denies cough, Denies dyspnea, Denies dyspnea on exertion and Denies wheezing Gastrointestinal Gastrointestinal: Denies abdominal pain, Denies change in bowel habits, Denies diarrhea, Denies nausea and Denies vomiting Musculoskeletal Denies back pain and Denies neck pain Integumentary/Breasts Denies pruritus, Denies erythema, Denies rash and Denies wounds Neurologic Denies confusion, Denies vertigo, Denies dizziness, Denies syncope, Denies headache(s) and Denies weakness Psychiatric Denies confusion Endocrine Denies palpitations Hematologic/Lymphatic Comments: Anticoagulated with Eliquis. Allergic/Immunologic Denies wheezing [facility] Medical History Acromegalia (Acute) Addisons disease (Acute) History of fractured pelvis (Acute) History of prostate cancer (Acute) Hypertension (Acute) Melanoma (Acute) Obstructive sleep apnea on CPAP (Acute) Pituitary adenoma (Acute) Surgical History H/O mitral valve replacement (Acute) History of bilateral inguinal hernia repair (Acute) History of pituitary surgery (Acute) History of shoulder surgery (Acute) History of transurethral resection of prostate (Acute) History of umbilical hernia repair (Acute) Social History household members: spouse and family Smoking Status: Former smoker Social History household members: spouse and family Smoking Status: Former smoker Exam Initial Vital Signs Initial Vital Signs: Vital Signs Temperature 97.7 F 11/04/18 19:33 Pulse Rate 61 11/04/18 19:33 Respiratory Rate 20 11/04/18 19:33 Blood Pressure 137/89 11/04/18 19:33 Pulse Oximetry 98 11/04/18 19:33 Const General: cooperative and well developed Nutritional Appearance: well nourished Orientation: alert, awake, oriented x3 and not confused [facility] Head: normal to inspection, normocephalic and atraumatic Face and sinus: normal facial exam Mouth: oral mucosae normal Throat: posterior oropharynx normal Eyes General: appearance normal, both eyes and all related structures Neck Neck: supple, No tender and No JVD Chest Other: Palpable tenderness at the xiphoid. Resp Effort & Inspection: normal respiratory effort, able to speak in complete sentences, no respiratory distress and no use of accessory muscles Auscultation: clear to auscultation bilaterally, no rales, no rhonchi and no wheezes Cardio Rate: regular rate Rhythm: regular rhythm Heart Sounds: S1 normal, S2 normal, no click, no gallops, no murmurs and no rubs Pulses: normal peripheral pulses GI Inspection: non-distended Palpation: soft, no hepatosplenomegaly, No guarding, No pulsatile mass and No tender Auscultation: normal bowel sounds Back/Spine/Pelvis Back: No back tenderness Skin General: no rashes or lesions noted Neuro General: alert, oriented x3, gait normal and no focal motor deficits Speech: speech normal Extrem General: full ROM, no pedal edema and no calf tenderness Course Course Narrative: The patient has a history of GERD. Discomfort was not relieved with a GI cocktail. Nitroglycerin topically did not change the pain at all. He did get some relief from Toradol. There are no critical findings as initial EKG, a 2nd EKG was likewise, reassuring. He had a troponin evaluate earlier in the month when he was seen here. There was a subtle elevation of the initial troponin night. The troponin was repeated after 2 hours and decreased, but still little above the value for normal at this lab. The patient insists he is doing okay, again no radiation of the pain or dyspnea. I discussed the case with on-call Cardiology, Dr. Guerra. Giving the timing and the patient's symptoms throughout the day, Dr. Guerra suggested the subtle elevation may be related to the 3 hours of AFib, noting the numbers improving with time there is no acute ST change on the 2 EKGs. Although he had an echo last year, he has not had a stress test for years. Dr. Guerra recommend he have a stress test. The options of perhaps overnight admission and station for a local stress test was discussed. The patient is improved with Toradol, not that he ever felt really ill at any time. [place] that he could contact his doctor in [place] on Tuesday and arrange a stress test. This being the situation, admission been discussed, the patient will be released with the plan to return if there is any change/increasing his pain, if he develops difficulty breathing or weakness/dizziness. Orders Ordered: ED Orders 11/04/18 19:33 XR chest 1V Stat EKG-12 Lead Stat 11/04/18 19:41 B Type Natriuretic Peptide Stat Complete Blood Count AUTO DIFF Stat Comprehensive Metabolic Panel Stat Lipase Stat Partial Thromboplastin Time Stat Prothrombin Time INR Stat Troponin & CK Cardiac Panel Stat 11/04/18 22:20 Troponin I Stat 11/04/18 23:02 EKG-12 Lead Stat Discontinued Medications Aspirin (Aspirin Chew) 324 mg PO NOW ONE Stop: 11/04/18 22:23 Last Admin: 11/04/18 22:25 Dose: 324 mg Al Hydrox/Mg Hydrox/Simethicone 20 ml/ Lidocaine HCl 15 ml 0 ml PO NOW ONE Stop: 11/04/18 19:55 Last Admin: 11/04/18 19:59 Dose: 20 ml Ketorolac Tromethamine (Toradol) 30 mg IV NOW ONE Stop: 11/04/18 23:12 Last Admin: 11/04/18 23:13 Dose: 30 mg Nitroglycerin (Nitro-Bid) 0.5 inch TOP NOW ONE Stop: 11/04/18 22:07 Last Admin: 11/04/18 22:15 Dose: 0.5 inch Vital Signs - 8 hr 11/04/18 19:33 11/04/18 19:37 11/04/18 20:51 Temperature 97.7 F Pulse Rate 61 61 61 Respiratory Rate 20 20 14 Blood Pressure 137/89 Blood Pressure [Left Arm] 137/89 132/83 Pulse Oximetry 98 98 98 11/04/18 22:00 11/04/18 22:15 11/04/18 22:55 Temperature Pulse Rate 58 L 59 L 60 Respiratory Rate 14 Blood Pressure 119/79 135/87 Blood Pressure [Left Arm] 119/79 Pulse Oximetry 94 11/04/18 23:42 Temperature Pulse Rate 58 L Respiratory Rate 16 Blood Pressure Blood Pressure [Left Arm] 131/84 Pulse Oximetry 97 MDM - Chest Pain Lab Data Result diagrams: 11/04/18 19:41 11/04/18 19:41 Lab Results 11/04/18 11/04/18 11/04/18 Range/Units 19:41 19:41 19:41 WBC 6.2 (4.5-11.0) X10^3/uL RBC 5.00 (4.5-5.9) X10^6/uL Hgb 16.2 (13.5-17.5) g/dL Hct 47.9 (41-53) % MCV 95.7 (80-100) fL MCH 32.4 (26-34) PG MCHC 33.8 (30-36) % RDW 15.0 H (11.6-14.8) % Plt Count 231 (150-400) X10^3/uL Neut % (Auto) 55.2 (50-75) % Lymph % (Auto) 34.2 (25-40) % [place] % (Auto) 7.2 (3-14) % Eos % (Auto) 1.5 L (2-4) % Baso % (Auto) 1.9 (0-2) % Neut # (Auto) 3400 (0693-9238) /uL Lymph # (Auto) 2100 (4514-2019) /uL [place] # (Auto) 400 (0-900) /uL Eos # (Auto) 100 (0-450) /uL Baso # (Auto) 100 (0-100) /uL PT 13.8 H (10.1-12.7) SECONDS INR 1.2 (0.9-1.3) APTT 33 D (26.4-36.2) SECONDS Sodium 142 (137-145) mmol/L Potassium 4.1 (3.4-5.1) mmol/L Chloride 109 H (98-107) mmol/L Carbon Dioxide 27 (22-32) mmol/L BUN 26 H (9-20) mg/dL Creatinine 0.60 L (0.66-1.25) mg/dL Estimated GFR > 60.0 (>60) mL/min BUN/Creatinine Ratio 43.3 H (6-22) Glucose 111 H (80-110) mg/dL Calcium 10.0 (8.4-10.2) mg/dL Total Bilirubin 0.7 (0.2-1.3) mg/dL AST 22 (17-59) IU/L ALT 21 (21-72) IU/L Alkaline Phosphatase 46 (38-126) U/L Total Creatine Kinase 122 (55-170) U/L CK-MB (CK-2) 2.80 H (<2.37) ng/mL CK-MB (CK-2) Rel Index 2.3 (1.5-5.0) % Troponin I 0.105 H (0.01-0.034) ng/mL B-Natriuretic Peptide (<100) Total Protein 6.9 (6.3-8.2) g/dL Albumin 4.3 (3.5-5.0) g/dL Globulin 2.6 (1.7-4.1) g/dL Albumin/Globulin Ratio 1.7 (1.0-2.8) Lipase 26 (23-300) U/L 11/04/18 11/04/18 Range/Units 19:41 22:20 WBC (4.5-11.0) X10^3/uL RBC (4.5-5.9) X10^6/uL Hgb (13.5-17.5) g/dL Hct (41-53) % MCV (80-100) fL MCH (26-34) PG MCHC (30-36) % RDW (11.6-14.8) % Plt Count (150-400) X10^3/uL Neut % (Auto) (50-75) % Lymph % (Auto) (25-40) % [place] % (Auto) (3-14) % Eos % (Auto) (2-4) % Baso % (Auto) (0-2) % Neut # (Auto) (3463-0288) /uL Lymph # (Auto) (0835-5238) /uL [place] # (Auto) (0-900) /uL Eos # (Auto) (0-450) /uL Baso # (Auto) (0-100) /uL PT (10.1-12.7) SECONDS INR (0.9-1.3) APTT (26.4-36.2) SECONDS Sodium (137-145) mmol/L Potassium (3.4-5.1) mmol/L Chloride (98-107) mmol/L Carbon Dioxide (22-32) mmol/L BUN (9-20) mg/dL Creatinine (0.66-1.25) mg/dL Estimated GFR (>60) mL/min BUN/Creatinine Ratio (6-22) Glucose (80-110) mg/dL Calcium (8.4-10.2) mg/dL Total Bilirubin (0.2-1.3) mg/dL AST (17-59) IU/L ALT (21-72) IU/L Alkaline Phosphatase (38-126) U/L Total Creatine Kinase (55-170) U/L CK-MB (CK-2) (<2.37) ng/mL CK-MB (CK-2) Rel Index (1.5-5.0) % Troponin I 0.086 H (0.01-0.034) ng/mL B-Natriuretic Peptide 151 H (<100) Total Protein (6.3-8.2) g/dL Albumin (3.5-5.0) g/dL Globulin (1.7-4.1) g/dL Albumin/Globulin Ratio (1.0-2.8) Lipase (23-300) U/L Imaging Data Chest x-ray: Radiologist's impression: [address] [address] XRay Report Signed Patient: Arthur Baptiste#: [id number] : 9Acct:[id number] Age/Sex: 67 / MDate of Service: 11/04/18 Loc: ED Accession Number: [id number] Procedure: XR chest 1V Ordering Provider: Domenico Acosta MD PROCEDURE: XR CHEST 1V INDICATIONS: chest pain TECHNIQUE: One view of the chest was acquired. COMPARISON: [facility], [place], XR CHEST 1V, 10/22/2018, 5:16. FINDINGS: Surgical changes and devices: Left shoulder arthroplasty and surgical wires consistent previous bypass as well as prosthetic heart valve are noted. Lungs and pleura: Minimal increased pulmonary vascularity is present. No pleural effusions or pneumothorax. Mediastinum: Aortic tortuosity is present. Heart size is normal. Bones and chest wall: No suspicious bony lesions. Overlying soft tissues appear unremarkable. IMPRESSION: Minimal increased vascularity. Dictated by: Khushboo Silveira M.D. on 11/04/2018 at 19:59 Approved by: Khushboo Silveira M.D. on 11/04/2018 at 20:01 Discharge Plan Departure Patient Disposition: Home Clinical Impression: AF (paroxysmal atrial fibrillation) Chest pain Qualifiers: Chest pain type: unspecified Qualified Code(s): R07.9 - Chest pain, unspecified Discharge Date/Time: 11/05/18 00:23 Instructions: DI for Chest Pain Activity Restrictions/Additional Instructions: Continue your current medications. Follow-up with your doctor next week to arrange a cardiac stress test. Return here or to a local ER if you have any significant change in chest pain or developed difficulty breathing or dizziness. Prescriptions: No Action metoprolol succinate 50 mg tablet extended release 24 hr 50 mg PO DAILY RF: 0 amlodipine 5 mg tablet 5 mg PO DAILY RF: 0 leflunomide 20 mg tablet 20 mg PO DAILY RF: 0 levothyroxine 50 mcg tablet 50 mcg PO DAILY RF: 0 hydrocortisone 10 mg tablet 10 mg PO BID RF: 0 ramipril 10 mg capsule 10 mg PO DAILY RF: 0 lanreotide 120 mg PO DIRECTED RF: 0 Eliquis 5 mg Tablet 5 mg PO BID Qty: 60 RF: 0
[2018-11-04 19:57] LABS: PTT Partial Thromboplastin Tim 33 SECONDS (26.4-36.2)
[2018-11-04 19:58] LABS: Alanine Aminotransferase 21 IU/L (21-72); Albumin 4.3 g/dL (3.5-5.0); Albumin Globulin Ratio 1.7 (1.0-2.8); Alkaline Phosphatase 46 U/L (38-126); Aspartate Aminotransferase 22 IU/L (17-59); BUN Creatinine Ratio 43.3 (6-22); Bilirubin Total 0.7 mg/dL (0.2-1.3); Blood Urea Nitrogen 26 mg/dL (9-20); Carbon Dioxide 27 mmol/L (22-32); Chloride 109 mmol/L (98-107); Creatine Kinase 122 U/L (55-170); Estimated Glomerular Filt Rate > 60.0 mL/min (>60); Globulin 2.6 g/dL (1.7-4.1); Glucose 111 mg/dL (80-110); Lipase 26 U/L (23-300); Potassium 4.1 mmol/L (3.4-5.1); Sodium 142 mmol/L (137-145); Total Protein 6.9 g/dL (6.3-8.2)
[2018-11-04] MEDS: MAG HYDROX/ALUMINUM/SIMETH SUS 20 ML, LIDOCAINE VISCOUS 2% 15 ML PO (19:59)
[2018-11-04 20:09] LABS: Troponin I 0.105 ng/mL (0.01-0.034)
[2018-11-04 20:13] LABS: CKMB % Relative Index 2.3 % (1.5-5.0); HEMOLYSIS 20 (0-50)
--- NOTE | 2018-11-04 20:17 | PC.NURSE ---
The patient reports no change in epigastric discomfort at this time.
[2018-11-04] MEDS: NITROGLYCERIN OINT 1 INCH/GM OINT...G. 0.5 INCH TOP (22:15)
[2018-11-04] MEDS: ASPIRIN 81 MG TAB 324 MG PO (22:25)
[2018-11-04 22:49] LABS: Troponin I 0.086 ng/mL (0.01-0.034)
[2018-11-04] MEDS: KETOROLAC 60 MG/2 ML VIAL 30 MG IV (23:13)
[2018-11-04 23:36] LABS: B Type Natriuretic Peptide 151 (<100)
[2018-11-05 00:23] VITALS: BP 136/96; PULSE 56; RESP 16; O2SAT 95
== END 2018-11-05 00:23 | disposition home or self-care (01) ==
PROVIDERS: Emergency Provider Emergency Medicine
DX: I48.0 Paroxysmal atrial fibrillation (principal); R07.9 Chest pain, unspecified; Z79.01 Long term (current) use of anticoagulants
CPT/HCPCS: 36415; 36591; 71045; 80053; 82550; 82553; 83690; 83880; 84484; 85025; 85610; 85730; 93005; 93010; 96374; 99283; 99285; J1885